=== PATIENT | male | born 1930 | race Native Hawaiian/Other Pacific Islander ===

== ENCOUNTER 2016-12-06 12:48 | Outpatient (CLI) | payer OTHER | END 2016-12-06 14:00 | disposition home or self-care (01) | LOC: RESP 12:48 | DX: J44.9 Chronic obstructive pulmonary disease, unspecified (principal) | CPT/HCPCS: 94640; 94664 ==

== ENCOUNTER 2018-08-21 09:42 | Outpatient (CLI) | payer OTHER | END 2018-08-21 23:45 | disposition home or self-care (01) | LOC: RESP 09:42 | DX: J44.9 Chronic obstructive pulmonary disease, unspecified (principal) ==